=== PATIENT | female | born 1970 | race African-American/Black ===

== ENCOUNTER → 2017-12-15 | Outpatient (CLI) | payer BC ==
[~2017-12-15] MED LIST: REGADENOSON 0.4 MG/5 ML DISP.SYRIN. IV ONE
--- NOTE | 2017-12-15 09:29 | PCVCIMAG ---
APPROVED REPORT Study performed: 12/15/2017 08:40:43 EXAM: Comprehensive 2D, Doppler, and color-flow Echocardiogram Patient Location: Echo lab Status: routine BSA: 2.03 HR: 61 bpmBP: 98/68 mmHg Rhythm: NSR Other Information Study Quality: Excellent Risk Factors: Cardiac Risk Factors: Hyperlipidemia Indications Chest Pressure Palpitations Chest Pain 2D Dimensions IVSd: 10.28 (7-11mm)LVOT Diam: 22.00 (18-24mm) LVDd: 43.72 mm PWd: 9.77 (7-11mm)Ascending Ao: 28.32 (22-36mm) LVDs: 30.49 (25-40mm) Left Atrium: 35.07 (27-40mm) Aortic Root: 31.84 mm LV Single Plane 4CH: 60.66 % LV Single Plane 2CH: 59.22 % Biplane EF: 59.3 % Volumes Left Atrial Volume (Systole) Single Plane 4CH: 58.18 mLSingle Plane 2CH: 55.28 mL LA ESV Index: 30.00 mL/m2 Aortic Valve AoV Peak Graham.: 1.07 m/s AO Peak Gr.: 4.56 mmHg Mitral Valve E/A Ratio: 1.9 MV Decel. Time: 253.89 ms MV E Max Graham.: 0.80 m/s MV A Graham.: 0.42 m/s IVRT: 72.66 ms TDI E/Lateral E': 8.00E/Medial E': 8.89 Medial E' Graham.: 0.09 m/s Lateral E' Graham.: 0.10 m/s Pulmonary Valve PV Peak Graham.: 0.78 m/sPV Peak Gr.: 2.47 mmHg Pulmonary Vein P Vein S: 0.36 m/sP Vein A: 0.25 m/s P Vein D: 0.50 m/sP Vein A Dur.: 79.6 msec P Vein S/D Ratio: 0.72 Tricuspid Valve TR Peak Graham.: 2.41 m/sRAP Estimate: 7.00 mmHg TR Peak Gr.: 23.15 mmHg PA Pressure: 30.00 mmHg Left Ventricle The left ventricle is normal size. There is normal LV segmental wall motion. There is normal left ventricular wall thickness. Left ventricular systolic function is normal. The left ventricular ejection fraction is within the normal range. LVEF is 60%. The left ventricular diastolic function is normal. Right Ventricle The right ventricle is normal size. The right ventricular systolic function is normal. Atria The left atrium size is normal. The right atrium size is normal. Aortic Valve The aortic valve is normal in structure. No aortic regurgitation is present. There is no aortic valvular stenosis. Mitral Valve The mitral valve is normal in structure. Trace mitral regurgitation. No evidence of mitral valve stenosis. Tricuspid Valve The tricuspid valve is normal in structure. Trace to mild tricuspid regurgitation. Pulmonary artery pressure is 30 mmHg. Pulmonic Valve The pulmonary valve is normal in structure. Trace to mild pulmonic regurgitation. Great Vessels The aortic root is normal in size. IVC is normal in size and collapses >50% with inspiration. Pericardium There is no pericardial effusion. <Conclusion> The left ventricle is normal size. LVEF is 60%. The aortic valve is normal in structure. The mitral valve is normal in structure. Trace mitral regurgitation. The tricuspid valve is normal in structure. Trace to mild tricuspid regurgitation. Pulmonary artery pressure is 30 mmHg. The pulmonary valve is normal in structure. Trace to mild pulmonic regurgitation. There is no pericardial effusion.
--- NOTE | 2017-12-16 09:14 | PCVCIMAG ---
APPROVED REPORT Imaging Protocol: Rest Tc-99m/Stress Tc-99m 1 day Study performed: 12/15/2017 10:19:55 Indication: Palpitations , Chest Discomfort Patient Location: Out-Patient Stress Nurse: Apryl Martin RN, Liya Machado RN [place] Tech:Isaías Jose [facility] Ht: 5 ft 6 in Wt: 207 lbs BSA: 2.03 m2 HR: 63 bpm BP: 128/78 mmHg BMI: 33.4 Rhythm: Normal Sinus Rhythm Medical History Medications: [place], Oxycodone, Simvastatin Allergies: No known drug allergies Cardiac Risk Factors: Age, Hyperlipidemia Pretest Chest Pain Characteristics: No chest pain Exercise History: Sedentary Physical Disabilities: Back Resting Data Rest SPECT myocardial perfusion imaging was performed in supine position 45 minutes following the intravenous injection of 11.5 mCi of Tc-99m Sestamibi. Time of rest injection: 0940 Date: 12/15/2017 Administration Route: IV Administration Site: Right Hand Pharmacologic Stress Pharmacologic stress test was performed by injecting Regadenoson 0.4 mg IV push over 10-15 seconds immediately followed by the intravenous injection of 33.6 mCi of Tc-99m Sestamibi. Time of stress injection: 1050 Date: 12/15/2017 Administration Route: IV Administration Site: Right Hand Gated Stress SPECT was performed 45 minutes after stress injection. The images were gated to evaluate regional wall motion and calculate left ventricular ejection fraction. Stress Test Details Stress Test: Pharmacologic stress testing performed using 0.4 mg of regadenoson per 5 mL given IV over 10 seconds. Reason for pharmacologic stress test: Back pain, recent surgery. HRMax Heart Rate (APMHR): 174 bpm Resting HR: 63 bpmTarget HR (85% APMHR): 147 bpm Max HR Achieved: 116 bpm % of APMHR: 66 Recovery HR: 93 bpm BP Resting BP: 128/78 mmHg Recovery BP: 122/79 mmHg ECG Resting ECG: Sinus Rhythm Stress ECG: Sinus Tachycardia Arrhythmia: None Recovery ECG: Sinus Rhythm Clinical Reason for Termination: Completed protocol Stress Symptoms: Abdominal discomfort, Chest pain, Dyspnea, Nausea, Headache, Leg Fatigue, Lightheaded Exercise duration: min 55 sec Symptoms resolved with caffeine. Stress ECG Conclusion 1. Adequate response to intravenous Lexiscan 2. Inadequate heart rate for ECG diagnosis Study Data Post stress, the left ventricular ejection was 74%.. SSS: 3 SRS: 2 SDS: 1 TID = 1.17. Perfusion There is a small area of moderately reduced uptake in the apical segment of the anterior wall which is seen on the stress images as well as the resting images. This area thickens and moves normally and is most consistent with attenuation artifact. Wall Motion Normal left ventricular wall motion. Nuclear Conclusion ECG Findings: non-diagnostic Clinical Findings: negative for ischemia Nuclear Findings: negative for ischemia consistent with breast attenuation artifact Exercise Capacity: not assessed Left Ventricular Function: normal 1. Low risk study Interpreted by: Lisa Badillo MD Electronically Approved: 12/16/2017 09:13:56 <Conclusion> 1. Adequate response to intravenous Lexiscan 2. Inadequate heart rate for ECG diagnosis
== END | disposition home or self-care (01) ==
LOC: PCVCIMAG 14:04
PROVIDERS: ATTEND Internal Medicine
DX: R07.89 Other chest pain (principal); R00.2 Palpitations
CPT/HCPCS: 78452; 93017; 93306; A9500; J2785